=== PATIENT | female | born 1985 | race African-American/Black ===

== ENCOUNTER 2019-10-18 19:44 | Inpatient (IN) ==
[2019-10-18] MEDS ORDERED: MEPERIDINE 25 MG/1 ML VIAL IV PRN (21:08)
[2019-10-18] MEDS ORDERED: ONDANSETRON 4 MG/2 ML VIAL IV PRN (21:08)
[2019-10-18] MEDS ORDERED: LACTATED RINGERS 250 ML IV ONE (21:08)
[2019-10-18] MEDS ORDERED: MEPERIDINE 50 MG/1 ML VIAL IV PRN (21:08)
[2019-10-18] MEDS: LACTATED RINGERS 1,000 ML IV SCH (21:46)
[2019-10-18 22:14] LABS: Basophils % 0.4 % (0.0-0.8); Eosinophils # 0.2 10*3/uL (0.0-0.87); Hematocrit 35.5 VOL% (35.7-47.0); Hemoglobin 11.9 GM/DL (12.0-16.0); Immature Granulocytes % 0.4 %; Immature Granulocytes Absolute 0.04 #; Lymphocytes % 30.2 % (21.3-54.2); Mean Corpuscular HGB Conc 33.5 GM/DL (32-36); Mean Corpuscular Volume 99.2 FL (87-102); Mean Platelet Volume 10.7 FL (9.6-12.0); Monocytes % 9.2 % (1.7-12.7); Neutrophils % 57.8 % (38.7-73.9); Platelet Count 181 T/CUMM (130-400); Red Blood Count 3.58 MC/CUMM (3.8-5.5); Red Cell Distribution Width 12.9 % (9.3-17.3); White Blood Count 9.8 T/CUMM (4-12)
[2019-10-18 22:24] LABS: Apearance,Urine CLEAR (Clear); Bilirubin,Urine Negative (Negative); Blood, Urine Moderate mg/dL (Negative); Glucose,Urine (UA) Negative (Negative); Ketones,Urine Negative (Negative); Nitrite,Urine Negative (Negative); Protein,Urine Negative; RBC,Urine 2 /HPF (0-4); Squamous Epithelial Cell,Urine Occasional /HPF (0-10); Urine Color Straw (Yellow); Urine Specific Gravity 1.008 (1.001-1.035); Urine Urobilinogen < 2.0 EU/DL (0.2-1.0); WBC,Urine 3 /HPF (0-6)
[2019-10-18] MEDS: BETAMETH SODIUM PHOS/ACETATE 30 MG/5 ML VIAL IM SCH (23:08)
[2019-10-19 03:48] LABS: Basophils % 0.2 % (0.0-0.8); Eosinophils % 0.5 % (0.00-10.9); Hematocrit 36.7 VOL% (35.7-47.0); Hemoglobin 12.3 GM/DL (12.0-16.0); Immature Granulocytes % 0.2 %; Immature Granulocytes Absolute 0.02 #; Lymphocytes # 1.4 10*3/uL (1.4-4.0); Lymphocytes % 17.3 % (21.3-54.2); Mean Corpuscular HGB Conc 33.5 GM/DL (32-36); Mean Platelet Volume 10.3 FL (9.6-12.0); Monocytes % 2.2 % (1.7-12.7); Neutrophils % 79.6 % (38.7-73.9); Platelet Count 166 T/CUMM (130-400); Red Blood Count 3.67 MC/CUMM (3.8-5.5); Red Cell Distribution Width 13.1 % (9.3-17.3); White Blood Count 8.2 T/CUMM (4-12)
[2019-10-19] MEDS: LACTATED RINGERS 1,000 ML IV SCH ×2 (07:07→17:01)
[2019-10-19] MEDS: BETAMETH SODIUM PHOS/ACETATE 30 MG/5 ML VIAL IM SCH (10:41)
[2019-10-19] MEDS ORDERED: ceFAZolin 2,000 MG in PREMIX 1 EACH IV ONE (16:58)
[2019-10-19] MEDS ORDERED: CITRIC ACID/SODIUM CITRATE 30 ML UDCUP PO ONE (16:58)
[2019-10-19] MEDS ORDERED: FAMOTIDINE 20 MG/2 ML VIAL IV ONE (16:58)
[2019-10-19] MEDS ORDERED: OXYTOCIN 10 UNIT/ML VIAL IM ONE (17:29)
[2019-10-19] MEDS ORDERED: OXYTOCIN/LR 30 UNIT/1,000 ML BAG IV ONE (17:29)
[2019-10-19] MEDS ORDERED: miSOPROStoL 200 MCG TABLET ONE (18:03)
[2019-10-19] MEDS ORDERED: TRANEXAMIC ACID 1,000 MG/10 ML VIAL ONE (18:03)
[2019-10-19] MEDS ORDERED: CARBOPROST TROMETHAMINE 250 MCG/ML AMP IM ONE (18:04)
[2019-10-19] MEDS ORDERED: METHYLERGONOVINE 0.2 MG/1 ML AMP ONE (18:04)
[2019-10-19] MEDS ORDERED: ROPIVACAINE 0.5% 30 ML VIAL ONE (19:05)
[2019-10-19] MEDS ORDERED: BUPIVACAINE SPINAL 0.75% 2 ML AMP SPINAL ONE (19:05)
[2019-10-19] MEDS ORDERED: MORPHINE 10 MG/10 ML VIAL ONE (19:05)
[2019-10-19] MEDS ORDERED: ONDANSETRON 4 MG/2 ML VIAL ONE (19:05)
[2019-10-19] MEDS ORDERED: PHENYLEPHRINE 1 MG/10 ML SYRINGE IV ONE (19:05)
[2019-10-19] MEDS ORDERED: DEXAMETHASONE 4 MG/1 ML VIAL ONE (19:05)
[2019-10-19 19:41] LABS: Apearance,Urine CLEAR (Clear); Bilirubin,Urine Negative (Negative); Blood, Urine Negative (Negative); Glucose,Urine (UA) Negative (Negative); Ketones,Urine 5 mg/dL (Negative); Mucus,Urine Occasional /LPF (Occasional); Nitrite,Urine Negative (Negative); Protein,Urine Negative; RBC,Urine 1 /HPF (0-4); Squamous Epithelial Cell,Urine Occasional /HPF (0-10); Urine Color Yellow (Yellow); Urine Specific Gravity 1.015 (1.001-1.035); Urine Urobilinogen < 2.0 EU/DL (0.2-1.0); WBC,Urine <1 /HPF (0-6)
[2019-10-19] MEDS ORDERED: ACETAMINOPHEN 325 MG TABLET PO PRN (19:46)
[2019-10-19] MEDS ORDERED: RHO(D) IMMUNE GLOBULIN 300 MCG SYRINGE IM ONE (19:46)
[2019-10-19] MEDS ORDERED: OXYTOCIN/LR 20 UNIT/1,000 ML BAG IV ONE ×2 (19:46→19:50)
[2019-10-19] MEDS ORDERED: ONDANSETRON 4 MG/2 ML VIAL IV PRN (19:46)
[2019-10-19] MEDS ORDERED: LACTATED RINGERS 1,000 ML IV SCH (20:00)
[2019-10-19] MEDS ORDERED: hydrALAZINE 20 MG/1 ML VIAL IV ONE ×2 (23:12→23:24)
[2019-10-20] MEDS: IBUPROFEN 800 MG TABLET PO PRN ×3 (00:09→19:00)
[2019-10-20] MEDS: ceFAZolin 1,000 MG in SYRINGE 1 EACH IV SCH ×2 (02:14→09:02)
[2019-10-20] MEDS: DOCUSATE SODIUM 100 MG CAPSULE PO SCH ×3 (02:22→22:44)
[2019-10-20 06:38] LABS: Basophils % 0.1 % (0.0-0.8); Hematocrit 35.2 VOL% (35.7-47.0); Hemoglobin 12.1 GM/DL (12.0-16.0); Immature Granulocytes % 0.7 %; Immature Granulocytes Absolute 0.15 #; Lymphocytes # 1.8 10*3/uL (1.4-4.0); Lymphocytes % 8.2 % (21.3-54.2); Mean Corpuscular HGB Conc 34.4 GM/DL (32-36); Mean Corpuscular Volume 98.6 FL (87-102); Platelet Count 170 T/CUMM (130-400); Red Blood Count 3.57 MC/CUMM (3.8-5.5); Red Cell Distribution Width 12.9 % (9.3-17.3); White Blood Count 22.2 T/CUMM (4-12)
[2019-10-20 06:59] LABS: Band Neutrophils 1 % (0-10); Hypochromasia 1+; Lymphocytes 6 % (20-55); Platelet Estimate Adequate; Segmented Neutrophils 92 % (50-85); Total Cells Counted 100
[2019-10-20] MEDS ORDERED: METOCLOPRAMIDE 10 MG/2 ML VIAL ONE (08:30)
[2019-10-20] MEDS: MULTIVITAMIN (PRENATAL) TABLET PO SCH (08:56)
[2019-10-20] MEDS: METOCLOPRAMIDE 10 MG/2 ML VIAL IV SCH ×2 (08:56→15:45)
[2019-10-20] MEDS: SIMETHICONE CHEW 80 MG TABLET PO PRN (08:56)
[2019-10-20 10:16] LABS: Basophils # 0.1 10*3/uL (0.0-0.2); Basophils % 0.2 % (0.0-0.8); Hematocrit 34.1 VOL% (35.7-47.0); Hemoglobin 11.6 GM/DL (12.0-16.0); Immature Granulocytes % 0.7 %; Immature Granulocytes Absolute 0.18 #; Lymphocytes # 2.1 10*3/uL (1.4-4.0); Lymphocytes % 8.4 % (21.3-54.2); Mean Corpuscular Volume 99.4 FL (87-102); Mean Platelet Volume 10.4 FL (9.6-12.0); Monocytes % 5.7 % (1.7-12.7); Platelet Count 167 T/CUMM (130-400); Red Blood Count 3.43 MC/CUMM (3.8-5.5); Red Cell Distribution Width 13.1 % (9.3-17.3); White Blood Count 24.8 T/CUMM (4-12)
[2019-10-20 10:55] LABS: Band Neutrophils 12 % (0-10); Lymphocytes 10 % (20-55); Platelet Estimate Normal; Segmented Neutrophils 73 % (50-85); Total Cells Counted 100
[2019-10-20 10:56] LABS: Anisocytosis 1+; Macrocytosis Slight
[2019-10-20] MEDS: MAGNESIUM HYDROXIDE SUSP 30 ML UDCUP PO PRN (22:44)
[2019-10-21] MEDS: METOCLOPRAMIDE 10 MG/2 ML VIAL IV SCH ×2 (00:54→09:49)
[2019-10-21] MEDS: IBUPROFEN 800 MG TABLET PO PRN ×3 (07:03→19:00)
[2019-10-21] MEDS ORDERED: BISACODYL 10 MG SUPP RECTAL PRN (09:13)
[2019-10-21] MEDS: MULTIVITAMIN (PRENATAL) TABLET PO SCH (09:49)
[2019-10-21] MEDS: SIMETHICONE CHEW 80 MG TABLET PO PRN ×2 (09:49→21:02)
[2019-10-21] MEDS: DOCUSATE SODIUM 100 MG CAPSULE PO SCH ×2 (09:49→21:02)
[2019-10-21] MEDS: MAGNESIUM HYDROXIDE SUSP 30 ML UDCUP PO PRN ×2 (09:55→21:01)
[2019-10-21] MEDS: METOCLOPRAMIDE 10 MG TABLET PO SCH (21:01)
[2019-10-22] MEDS: IBUPROFEN 800 MG TABLET PO PRN ×2 (00:35→06:55)
[2019-10-22 07:20] VITALS: BP 133/75
[2019-10-22] MEDS: MULTIVITAMIN (PRENATAL) TABLET PO SCH (08:59)
[2019-10-22] MEDS: METOCLOPRAMIDE 10 MG TABLET PO SCH (08:59)
[2019-10-22] MEDS: MAGNESIUM HYDROXIDE SUSP 30 ML UDCUP PO PRN (08:59)
[2019-10-22] MEDS: DOCUSATE SODIUM 100 MG CAPSULE PO SCH (09:02)
[2019-10-22] MEDS ORDERED: DIPH/TET/ACEL PERT BOOSTER VACCINE 0.5 ML VIAL IM ONE (14:08)
[2019-10-22] MEDS ORDERED: INFLUENZA VIRUS VACCINE 0.5 ML SYRINGE IM ONE (14:08)
== END 2019-10-22 14:30 | disposition home or self-care (01) | DRG 540 ==
LOC: N.LDOUT 19:44 → N.LD 19:47 → N.OB 10-20 00:25
PROVIDERS: ADMIT Obstetrics & Gynecology; ATTEND Obstetrics & Gynecology